=== PATIENT | female | born 1970 | race Caucasian/White ===

== ENCOUNTER 2024-05-29 10:59 | Day surgery (SDC) | payer OTHER ==
[~2024-05-29] VITALS: Ht 172.7 cm; Wt 120.1 kg
[2024-05-29] VITALS (10 sets, daily range): BP systolic 132–163; BP diastolic 65–93; PULSE 72–88; TEMP 98.5
[~2024-05-29 10:59] MED LIST: 1/2 NS 1,000 ML IV SCH; CALCIUM + D 6001 TA1 PO; CALCIUM600 M1 PO; CLARITIN 1010 MG/TAB PO; HCTZ 25MG TAB25 MG PO; MICARDIS20 MG PO; TOPROL XL 25MG25 MG PO; TYLENOL W/COD1 UDTAB PO; VITAMIN D 400400 IU PO
[2024-05-29 12:12] LABS: HEMATOCRIT 39.6 % (37.0-47.0); HEMOGLOBIN 12.8 g/dl (12.5-16.0); MEAN CELL VOLUME 89 fl (80.0-100.0); MEAN CORPUSCULAR HEMOGLOBIN 29 pg (27-31); MEAN CORPUSCULAR HGB CONC 32 g/dl (33.0-37.0); MEAN PLATELET VOLUME 9.3 fl (7.4-10.4); PLATELET COUNT 225 K/mm3 (130-400); RED BLOOD COUNT 4.46 M/mm3 (4.10-5.30); REDCELL DISTRIBUTION WIDTH-CV 14.9 % (11.5-14.5)
[2024-05-29] MEDS ORDERED: ASPIRIN 81M81 MG/TA2 PO (12:16)
[2024-05-29] MEDS ORDERED: TRULICITY1.5 MG/0.5 SQ (12:16)
[2024-05-29] MEDS ORDERED: PLAVIX 75MG TAB75 MG PO (12:16)
[2024-05-29] MEDS ORDERED: GLUCOPHAGE1000 MG PO (12:17)
[2024-05-29] MEDS ORDERED: ALDACTONE 25MG25 M1 PO (12:17)
[2024-05-29] MEDS ORDERED: SINGULAIR 110 MG/TAB PO (12:17)
[2024-05-29] MEDS ORDERED: PEPCID 20MG TAB20 MG PO (12:18)
[2024-05-29] MEDS ORDERED: ZYRTEC 10MG10 MG PO (12:18)
[2024-05-29] MEDS ORDERED: COZAAR 50MG50 MG/TAB PO (12:18)
[2024-05-29] MEDS ORDERED: PRIL40 PO (12:18)
[2024-05-29] MEDS ORDERED: ZYLOPRIM 300MG300 MG PO (12:19)
[2024-05-29 12:27] LABS: CALCIUM 9.1 mg/dL (8.4-10.2); CREATININE, serum 0.88 mg/dL (0.57-1.11); POTASSIUM 4.6 mEq/L (3.5-4.5)
[2024-05-29] MEDS ORDERED: EFFEXOR100 MG PO (12:30)
[2024-05-29] MEDS ORDERED: CRESTOR 10MG10 MG PO (12:31)
[2024-05-29] MEDS ORDERED: PROAIR HFA0.09 MG/AC IH (12:31)
[2024-05-29] MEDS ORDERED: DESYREL 100MG100 MG PO (12:31)
[2024-05-29 12:32] LABS: INR 1.1 (0.8-3.0); PROTHROMBIN TIME 11.5 SECONDS (9.7-12.8)
[2024-05-29] MEDS ORDERED: Heparin 1,000 UNITS/ML 10 ML Multi-Dose VIAL IA SCH (13:42)
[2024-05-29] MEDS ORDERED: Nitroglycerin 100 MCG/ML (Cath Lab) 10 ML VIAL IA SCH (13:43)
--- NOTE | 2024-05-29 13:53 | NUR ---
See Merge report for procedural sedation/notes
[2024-05-29] MEDS ORDERED: Midazolam 2 MG/2 ML VIAL IV SCH (14:13)
[2024-05-29] MEDS ORDERED: fentaNYL 50 MCG/ML 2 ML VIAL IV SCH (14:13)
[2024-05-29] MEDS ORDERED: Iohexol 350 - 100 ML VIAL INCOR ONE (14:14)
--- NOTE | 2024-05-29 14:38 | NUR ---
Pt back to [facility] - bedside handoff performed with JEM Orozco: vitals initiated and stable, rt radial access site "sore", but stable/no hematoma, call light in reach, at bedside.
--- NOTE | 2024-05-29 17:34 | NUR ---
PT TOLERATED RECOVERY PERIOD WELL. VS REMAINED WITHIN NORMAL LIMITS. PT ASSISTED TO ER EXIT VIA WHEELCHAIR. IV DISCONTINUED. PT REMAINED FREE FROM SIGNS OF BLEEDING AND HEMATOMA THROUGHOUT RECOVERY PERIOD. PT'S RIGHT RADIAL DRESSING REMAINED CLEAN DRY AND INTACT UPON DISCHARGE. PT VERBALIZED UNDERSTANDING OF DISCHARGE INSTRUCTIONS AND REMAINED FREE FROM ACUTE CONCERNS AND COMPLAINTS.
== END 2024-05-29 17:36 | disposition home or self-care (01) ==
LOC: SDCO 10:59
PROVIDERS: Internal Medicine Interventional Cardiology
DX: R07.89 Other chest pain (principal); R94.39 Abnormal result of other cardiovascular function study; I10 Essential (primary) hypertension; E11.9 Type 2 diabetes mellitus without complications
CPT/HCPCS: C1769; J1644; J2250; J3010; Q9967

== ENCOUNTER 2024-09-10 09:48 | Day surgery (SDC) | payer OTHER ==
[2024-09-10] VITALS (10 sets, daily range): BP systolic 119–147; BP diastolic 55–79; PULSE 73–97; TEMP 97.1–97.9
[~2024-09-10] VITALS: Ht 172.7 cm; Wt 121.0 kg
[~2024-09-10 09:48] MED LIST changes: -1/2 NS 1,000 ML IV SCH; +ALDACTONE 25MG25 M1 PO; +ASPIRIN 81M81 MG/TA2 PO; +COZAAR 50MG50 MG/TAB PO; +CRESTOR 10MG10 MG PO; +DESYREL 100MG100 MG PO; +EFFEXOR-XR150 MG PO; +EFFEXOR100 MG PO; +GLUCOPHAGE1000 MG PO; +HYDROmorphone 1 MG/1 ML SYRINGE [PACU/SDC ONLY] IV PRN; +LR 1,000 ML IV SCH; +MULTI VITAMINS1 TAB PO; +Morphine 2 MG/1 ML VIAL [PACU/SDC ONLY] IV PRN; +Ondansetron 4 MG/2 ML VIAL IV PRN; +Ondansetron 4 MG/2 ML VIAL IV SCH; +PEPCID 20MG TAB20 MG PO; +PLAVIX 75MG TAB75 MG PO; +PRIL40 PO; +PROAIR HFA0.09 MG/AC IH; +SINGULAIR 110 MG/TAB PO; +Scopolamine 1 MG Delivered 3-Day PATCH TD SCH; +TRULICITY1.5 MG/0.5 SQ; +TRULICITY3 MG/0.5 M SQ; +ZYLOPRIM 300MG300 MG PO; +ZYRTEC 10MG10 MG PO; +diazePAM 5 MG TAB PO SCH; +droPERidol 2.5 MG/ML 2 ML VIAL IV PRN; +fentaNYL 50 MCG/ML 1 ML SYRINGE/VIAL [PACU/SDC ONLY] IV PRN
--- NOTE | 2024-09-10 10:23 | NUR ---
PATIENT ADMITTED TO ROOM 4 AMBULATORY AND IS ALERT AND ORIENTED X3. CONSENTS SIGNED. PRE-OPS GIVEN ORDERED. IVF INFUSING. SPOUSE IN THE ROOM. CALL LIGHT IN REACH.
[2024-09-10] MEDS ORDERED: NS 10 ML IV ONE (11:28)
[2024-09-10] MEDS ORDERED: Ondansetron 4 MG/2 ML VIAL ONE (11:28)
[2024-09-10] MEDS ORDERED: fentaNYL 50 MCG/ML 5 ML VIAL ONE (11:28)
[2024-09-10] MEDS ORDERED: Rocuronium 50 MG/5 ML Multi-Dose VIAL ONE ×2 (11:28→12:26)
[2024-09-10] MEDS ORDERED: dexAMETHasone 10 MG/ML VIAL ONE (11:28)
[2024-09-10] MEDS ORDERED: Ketorolac 30 MG/ML VIAL ONE (11:28)
[2024-09-10] MEDS ORDERED: Lidocaine PF 2% (20 MG/ML) 5 ML VIAL ONE (11:29)
[2024-09-10] MEDS ORDERED: fentaNYL 50 MCG/ML 1 ML SYRINGE/VIAL [PACU/SDC ONLY] IV PRN (11:30)
[2024-09-10] MEDS ORDERED: HYDROmorphone 1 MG/1 ML SYRINGE [PACU/SDC ONLY] IV PRN (11:30)
[2024-09-10] MEDS ORDERED: Morphine 2 MG/1 ML VIAL [PACU/SDC ONLY] IV PRN (11:30)
[2024-09-10] MEDS ORDERED: droPERidol 2.5 MG/ML 2 ML VIAL IV PRN (11:30)
[2024-09-10] MEDS ORDERED: Ondansetron 4 MG/2 ML VIAL IV PRN ×2 (11:30→14:30)
[2024-09-10] MEDS ORDERED: fentaNYL 50 MCG/ML 2 ML VIAL ONE (12:39)
[2024-09-10] MEDS ORDERED: Lidocaine 2% (20 MG/ML) 20 ML UROJET UR ONE (12:58)
[2024-09-10] MEDS ORDERED: Topical Skin Adhesive 1 EACH (1 ML) TOP ONE (12:58)
[2024-09-10] MEDS ORDERED: Tranexamic Acid 1,000 MG/10 ML VIAL ONE (13:51)
[2024-09-10] MEDS ORDERED: Acetaminophen 500 MG TAB PO PRN (14:30)
[2024-09-10] MEDS ORDERED: oxyCODONE 5 MG TAB PO PRN (14:30)
[2024-09-10] MEDS ORDERED: LR 1,000 ML IV SCH (14:30)
[2024-09-10] MEDS ORDERED: Naloxone 0.4 MG/ML VIAL IV PRN (14:30)
--- NOTE | 2024-09-10 15:38 | NUR ---
1530 PT TO RM 222 VIA BED, ACCOMPANIED BY OR STAFF, PT SLEEPY, ANSWERS TO NAME AND DRIFTS BACK TO SLEEP. DENIES NEEDS AT THIS TIME.
--- NOTE | 2024-09-10 19:45 | NUR ---
DR. BEAN NOTIFIED OF PATIENTS 1 HOUR PP BLOOD GLUCOSE OF 244. PATIENT REPORTS LAST TAKING METFORMIN 09/02/24 AND STATED THAT "MY PCP TOLD ME TO STOP TAKING THE METFORMIN 48 HOURS BEFORE AND AFTER THE SURGERY". PATIENT REPORTS LAST TRULICITY WAS TAKEN 2 WEEKS AGO ON MONDAY. PATIENT DOES NOT TAKE INSULIN AT HOME. DR. BEAN GAVE THE FOLLOWING VERBAL PHONE READBACK ORDER: 1. ASSESS PATIENT'S FASTING BLOOD GLUCOSE IN MORNING.
[2024-09-10] MEDS ORDERED: Ibuprofen 800 MG TAB PO SCH (20:20)
[2024-09-10] MEDS ORDERED: Docusate Sodium 100 MG CAP PO SCH (21:00)
[2024-09-11 04:30] VITALS: BP 127/59; PULSE 68; TEMP 97.8
--- NOTE | 2024-09-11 07:05 | NUR ---
PT ASSISTED OUT OF BED AND INTO BATHROOM. MENEZES DISCONTINUED PER ORDERS WITH BALLOON INTACT. ROSIO CARE DONE BY PT WITH ROSIO BOTTLE. PT ASSISTED BACK TO BED POC REVIEWED. PT VERBALIZES UNDERSTANDING. CALL LIGHT IN REACH.
[2024-09-11 09:05] VITALS: BP 108/55; PULSE 66; TEMP 97.4
--- NOTE | 2024-09-11 10:14 | NUR ---
Initial visit; Patient thanked Architectural Design Lecturer for looking in on her following her Hysterectomy. She said she is sore but otherwise doing ok. Architectural Design Lecturer wished her well and offered God's blessings before she requested that Architectural Design Lecturer pray with her. Architectural Design Lecturer was delighted and prayed for continued healing; rapid and thorough, and that she be continually blessed with good health and wonderful holiday. Her was sleeping.
--- NOTE | 2024-09-11 13:45 | NUR ---
1340THIS RN AT BEDSIDE TO DISCUSS DISCHAGE TEACHING, INCLUDING MEDICATIONS, FOLLOW UP APPOINTMENTS, ACTIVITY, WHEN TO CALL THE DR. PT VERBALIZES UNDERSTANDING. [id number] RN ACCOMPANIES PT AMBULATORY WITH SPOUSE OFF UNIT, TO VEHICLE, FOR DESTINATION HOME.
== END 2024-09-11 13:45 | disposition home or self-care (01) ==
LOC: SDCO 09:48 → OB 15:30 → SDCO 09-11 13:45
DX: D25.9 Leiomyoma of uterus, unspecified (principal); N84.3 Polyp of vulva; N80.03 Adenomyosis of the uterus; N83.202 Unspecified ovarian cyst, left side; I10 Essential (primary) hypertension; J45.909 Unspecified asthma, uncomplicated; E78.5 Hyperlipidemia, unspecified; E11.9 Type 2 diabetes mellitus without complications; K21.9 Gastro-esophageal reflux disease without esophagitis; Z79.85 Long-term (current) use of injectable non-insulin antidiabetic drugs
CPT/HCPCS: OP; J0690; J1100; J1171; J1885; J2405; J2704; J3010; J7120